=== PATIENT | female | born 1980 ===

== ENCOUNTER 2017-05-13 16:21 | Emergency (ER) | payer SELFPAY ==
[2017-05-13] MEDS ORDERED: Ketorolac 30 MG/ML SDV IVPUSH ONE ×2 (17:01→18:42)
[2017-05-13] MEDS ORDERED: Ondansetron 4 MG/2 ML SDV IVPUSH ONE (17:01)
--- NOTE | 2017-05-13 17:11 | EDM.PDOC ---
ED HPI GENERAL MEDICAL PROBLEM Frontal Headache Pain Score (Numeric/FACES): 6 - General Chief Complaint: Head Injury Stated Complaint: FALL/HIT HEAD Time Seen by Provider: 05/13/17 16:47 - History of Present Illness INITIAL COMMENTS - FREE TEXT/NARRATIVE: HISTORY AND PHYSICAL: History of present illness: This is a 36-year-old female presenting to the emergency department with a chief complaint of passing out after head trauma. Eyes for the patient she states that while at work today [employer]urt[employer] she hit her head on a metal after moving too quickly and not realizing which is what to do. She states that after she hit her head she did pass out and fall on the floor. She believes that she did pass out that she is unaware of how long she did pass out for. The incident was not witnessed by anybody else. She states that when she woke up, she was initially confused and began to feel nauseous immediately. Currently she continues to complain of nausea and also complains of headache and neck pain. She also complains of ringing in the ears. She denies any chest pain shortness of breath, she denies any numbness or tingling. Review of systems: As per history of present illness and below otherwise all systems reviewed and negative. Past medical history: As per history of present illness and as reviewed below otherwise noncontributory. Surgical history: As per history of present illness and as reviewed below otherwise noncontributory. Social history: No reported history of drug or alcohol abuse. Family history: As per history of present illness and as reviewed below otherwise noncontributory. Physical exam: HEENT: Atraumatic, normocephalic, pupils reactive, negative for conjunctival pallor or scleral icterus, mucous membranes moist, throat clear, neck supple, generalized tenderness to palpation. trachea midline. Lungs: Clear to auscultation, breath sounds equal bilaterally, chest nontender. Heart: S1S2, regular, negative for clicks, rubs, or JVD. Extremities: Atraumatic, negative for cords or calf pain. Neurovascular unremarkable. Neuro: Awake, alert, oriented. Cranial nerves II through XII unremarkable. Cerebellum unremarkable. Motor and sensory unremarkable throughout. Exam nonfocal. Diagnostics: Head CT without contrast Cervical spine CT without contrast Therapeutics: Zofran 4 mg IV push once Impression: Head injury - Concussion Plan: Discharge Home. Patient was advised to follow up with Dr. Choe within 3-5 days. Advised to return to seek further medical attention if she has any episodes of confusion, passing out, nausea or vomiting, or numbness/tingling. Patient agreed to the plan. Advised to take over the counter tylenol/ibuprofen for pain control as needed. (Man Choe) I have seen and discussed this patient with Dr. Choe and agree with the plan above. (Jing Ng) - Related Data Allergies Allergy/AdvReac Type Severity Reaction Status Date / Time codeine Allergy Rash Verified 05/13/17 16:43 Home Meds: Home Meds . [No Known Home Meds] 02/18/16 [History] Past Medical History Gastrointestinal History: Reports: Other (See Below) - Past Surgical History GI Surgical History: Reports: Cholecystectomy Musculoskeletal Surgical History: Reports: Other (See Below) Social & Family History - Family History Family Medical History: Noncontributory Oncologic: Reports: Lung, Uterine - Tobacco Use Smoking Status *Q: Former Smoker Years of Tobacco use: 15 Packs/Tins Daily: 1 Used Tobacco, but Quit: Yes Month Tobacco Last Used: 2012 - Caffeine Use Caffeine Use: Reports: Coffee, Energy Drinks, Soda, Tea - Recreational Drug Use Recreational Drug Use: No ED ROS GENERAL - Review of Systems Review Of Systems: See Below ED EXAM, HEAD INJURY - Physical Exam Exam: See Below Departure - Departure Time of Disposition: 18:34 Condition: Good - Departure Disposition: Home, Self-Care 01 Clinical Impression: Concussion injury of brain - Discharge Information Instructions: Head Injury, Adult, [id number] Referrals: PCP,None [Primary Care Provider] - Forms: ED Department Discharge Additional Instructions: The following information is given to patients seen in the emergency department who are being discharged to home. This information is to outline your options for follow-up care. We provide all patients seen in our emergency department with a follow-up referral. The need for follow-up, as well as the timing and circumstances, are variable depending upon the specifics of your emergency department visit. If you don't have a primary care physician on staff, we will provide you with a referral. We always advise you to contact your personal physician following an emergency department visit to inform them of the circumstance of the visit and for follow-up with them and/or the need for any referrals to a consulting specialist. The emergency department will also refer you to a specialist when appropriate. This referral assures that you have the opportunity for follow-up care with a specialist. All of these measure are taken in an effort to provide you with optimal care, which includes your follow-up. Under all circumstances we always encourage you to contact your private physician who remains a resource for coordinating your care. When calling for follow-up care, please make the office aware that this follow-up is from your recent emergency room visit. If for any reason you are refused follow-up, please contact the [facility] Emergency Department at and asked to speak to the emergency department charge nurse. - Problem List & Annotations (1) Concussion injury of brain SNOMED Code(s): 498123690 Code(s): S06.0X9A - CONCUSSION W LOSS OF CONSCIOUSNESS OF UNSP DURATION, INIT Status: Acute
[2017-05-13 18:48] VITALS: BP 112/76
--- NOTE | 2017-05-14 10:29 | CT ---
EXAM DATE: 05/13/17 PATIENT'S AGE: 36 Patient: [facility] Facility: [place], [place] Site . Site : 1980 Study: CT Spine Cervical [id number]/14/2017 5:46:15 PM Ordering Physician: Дмитрий Conway Final Report: INDICATION: Neck pain, head trauma TECHNIQUE: CT cervical spine without contrast. COMPARISON: None FINDINGS: Vertebral alignment: Alignment is normal. Vertebrae: There are no fractures or suspicious bony lesions. Discs and facet joints: Disc spaces and facets are within normal limits. Extraspinal findings: Prevertebral soft tissues, visualized airway, and visualized lungs are unremarkable. IMPRESSION: Unremarkable cervical spine CT. Please note that all CT scans at this facility use dose modulation, iterative reconstruction, and/or weight-based dosing when appropriate to reduce radiation dose to as low as reasonably achievable. Dictated by Sarah Moran MD @ May 13 2017 6:23PM (Electronic Signature) Report Signed by Proxy. [facility]
--- NOTE | 2017-05-14 10:30 | CT ---
EXAM DATE: 05/13/17 PATIENT'S AGE: 36 Patient: [facility] Facility: [place], [place] Site . Site : 1980 Study: CT Head [id number]/14/2017 5:46:34 PM Ordering Physician: Дмитрий Conway Final Report: INDICATION: Trauma. Pain. TECHNIQUE: CT head without contrast. COMPARISON: None available FINDINGS: The ventricles and sulci demonstrate normal configuration and size. There is no mass effect or midline shift. There is no loss of avila-white differentiation. There is no evidence of a gross acute intracranial hemorrhage. No acute calvarial fracture is seen. The visualized paranasal sinuses and mastoid air cells are clear. The visualized orbits are within normal limits. IMPRESSION: No evidence of a gross acute intracranial hemorrhage, mass effect or loss of avila-white differentiation. Dictated by Jefferson Swanson MD @ 05/13/2017 6:30:24 PM Dictated by: Jefferson Swanson MD @ 05/13/2017 18:30:28 (Electronic Signature) Report Signed by Proxy. [facility]
== END 2017-05-13 18:59 | disposition home or self-care (01) ==
LOC: MW.ED 16:21
DX: S06.0X0A Concussion without loss of consciousness, initial encounter (principal); Z88.5 Allergy status to narcotic agent; Z90.49 Acquired absence of other specified parts of digestive tract; Z87.891 Personal history of nicotine dependence; W22.8XXA Striking against or struck by other objects, initial encounter
CPT/HCPCS: 70450; 72125; 96374; 96375; 99284; J1885; J2405; 99283

== ENCOUNTER 2017-10-14 19:53 | Emergency (ER) | payer BC ==
--- NOTE | 2017-10-14 20:33 | EDM.PDOC ---
ED HPI GENERAL MEDICAL PROBLEM - General Chief Complaint: Respiratory Problem Stated Complaint: FLU SYMTPOMS Time Seen by Provider: 10/14/17 20:20 Source of Information: Reports: Patient History Limitations: Reports: No Limitations - History of Present Illness INITIAL COMMENTS - FREE TEXT/NARRATIVE: HISTORY AND PHYSICAL: History of present illness: Patient comes to the emergency room today complaining of cough, chest congestion and generalized malaise for the past 2 weeks. In that timeframe she' s also developed body aches and fevers off and on. She has not checked her temperature but has felt feverish alternating with chills. No nausea or vomiting. No abdominal pain. Bowel bladder are normal. Has had some mild ear discomfort clear runny nose but no sore throat. She is taking DayQuil for her symptoms which has provided no improvement or relief. Cough is nonproductive. No purulent nasal discharge. Review of systems: As per history of present illness and below otherwise all systems reviewed and negative. Past medical history: As per history of present illness and as reviewed below otherwise noncontributory. Surgical history: As per history of present illness and as reviewed below otherwise noncontributory. Social history: No reported history of drug or alcohol abuse. Family history: As per history of present illness and as reviewed below otherwise noncontributory. Physical exam: HEENT: Atraumatic, normocephalic. TMs are clear. Nares patent. Oral mucous membranes are pink and moist. No tonsillar swelling, erythema or exudate. Neck supple no lymphadenopathy. Lungs: Clear to auscultation, breath sounds equal bilaterally. Heart: S1S2, regular rate and rhythm. Abdomen: Soft, nondistended, nontender. Pelvis: Stable nontender. Genitourinary: Deferred. Rectal: Deferred. Extremities: Atraumatic, full range of motion. Neurovascular unremarkable. Neuro: Awake, alert, oriented. Motor and sensory unremarkable throughout. Exam nonfocal. Diagnostics: [Chest x-ray, influenza swab] Impression: [Viral syndrome] Plan: [Discussed with patient that her symptoms are viral in nature. Recommend she push fluids, get plenty of rest. Lvss-egs-zifhghv analgesics and anti- inflammatories as well as shyy-yml-gnnlier cough syrups are recommended. Strict return precautions are reviewed. She is in agreement with today's plan.] Definitive disposition and diagnosis as appropriate pending reevaluation and review of above. body pain Pain Score (Numeric/FACES): 5 - Related Data Allergies Allergy/AdvReac Type Severity Reaction Status Date / Time codeine Allergy Rash Verified 10/14/17 20:07 Home Meds: Home Meds . [No Known Home Meds] 02/18/16 [History] Past Medical History - Past Health History Medical/Surgical History: Denies Medical/Surgical History HEENT History: Reports: None Cardiovascular History: Reports: None Respiratory History: Reports: None Gastrointestinal History: Reports: None Genitourinary History: Reports: None CORN POPPER History: Reports: Musculoskeletal History: Reports: None Neurological History: Reports: None Psychiatric History: Reports: Anxiety, Depression Endocrine/Metabolic History: Reports: None Hematologic History: Reports: None Immunologic History: Reports: None Oncologic (Cancer) History: Reports: None Dermatologic History: Reports: None - Infectious Disease History Infectious Disease History: Reports: None - Past Surgical History Head Surgeries/Procedures: Reports: None GI Surgical History: Reports: Cholecystectomy Musculoskeletal Surgical History: Reports: Shoulder Surgery Social & Family History - Family History Family Medical History: Noncontributory Oncologic: Reports: Lung, Uterine - Tobacco Use Smoking Status *Q: Former Smoker Years of Tobacco use: 15 Packs/Tins Daily: 1 Used Tobacco, but Quit: No Month Tobacco Last Used: 2012 - Caffeine Use Caffeine Use: Reports: Coffee - Recreational Drug Use Recreational Drug Use: No ED ROS GENERAL - Review of Systems Review Of Systems: ROS reveals no pertinent complaints other than HPI. ED EXAM, GENERAL - Physical Exam Exam: See Below Course - Vital Signs Last Recorded V/S: Last Vital Signs Temp 98 F 10/14/17 20:08 Pulse 92 10/14/17 20:08 Resp 19 10/14/17 20:08 BP 128/87 10/14/17 20:08 Pulse Ox 98 10/14/17 20:08 - Orders/Labs/Meds Orders: Active Orders 24 hr Category Date Time Status Chest 2V [CR] Stat Exams 10/14/17 20:25 Taken Departure - Departure Time of Disposition: 21:50 Disposition: Home, Self-Care 01 Condition: Good Clinical Impression: Viral syndrome - Discharge Information Referrals: PCP,None [Primary Care Provider] - Forms: ED Department Discharge Additional Instructions: The following information is given to patients seen in the emergency department who are being discharged to home. This information is to outline your options for follow-up care. We provide all patients seen in our emergency department with a follow-up referral. The need for follow-up, as well as the timing and circumstances, are variable depending upon the specifics of your emergency department visit. If you don't have a primary care physician on staff, we will provide you with a referral. We always advise you to contact your personal physician following an emergency department visit to inform them of the circumstance of the visit and for follow-up with them and/or the need for any referrals to a consulting specialist. The emergency department will also refer you to a specialist when appropriate. This referral assures that you have the opportunity for follow-up care with a specialist. All of these measure are taken in an effort to provide you with optimal care, which includes your follow-up. Under all circumstances we always encourage you to contact your private physician who remains a resource for coordinating your care. When calling for follow-up care, please make the office aware that this follow-up is from your recent emergency room visit. If for any reason you are refused follow-up, please contact the [facility] emergency department at and asked to speak to the emergency department charge nurse. [facility] [address] [place] [id number] Follow-up with a local primary care provider or at the clinic listed above in 48 -72 hours. You've been diagnosed with a viral illness. Push fluids. Get plenty of rest. If DayQuil is helping, stop it and start Robitussin or Delsym. Mucinex may also be helpful with your cough. Return to ER as needed as discussed. - My Orders Last 24 Hours: My Active Orders 10/14/17 20:25 Chest 2V [CR] Stat - Assessment/Plan Last 24 Hours: My Active Orders 10/14/17 20:25 Chest 2V [CR] Stat
[2017-10-14 22:05] VITALS: BP 117/73
--- NOTE | 2017-10-15 16:02 | CR ---
EXAM DATE: 10/14/17 PATIENT'S AGE: 37 Patient: [facility] Facility: [place], [place] Site . Site : 1980 Study: XRay Chest [id number]/15/2018 9:18:35 PM Ordering Physician: Doctor Peter Final Report: INDICATION: Cough for 2 weeks. TECHNIQUE: Chest radiograph 2 views COMPARISON: 09/03/2010. FINDINGS: Cardiovascular and mediastinum: The heart silhouette is normal in size and morphology. The mediastinum is normal in appearance. Lungs and pleural spaces: Both lungs are unremarkable in appearance. No sign of pleural effusion seen. No pneumothorax is identified. Bones and soft tissues: No significant findings. IMPRESSION: 1. Negative chest. Dictated by Gerry Smith MD @ 10/14/2017 9:48:12 PM Dictated by: Gerry Smith MD @ 10/14/2017 21:48:15 (Electronic Signature) Report Signed by Proxy. [facility]
== END 2017-10-14 22:00 | disposition home or self-care (01) ==
LOC: MW.ED 19:53
DX: B34.9 Viral infection, unspecified (principal); F32.9 Major depressive disorder, single episode, unspecified; Z87.891 Personal history of nicotine dependence; Z88.5 Allergy status to narcotic agent
CPT/HCPCS: 71046; 71046-26; 87804; 99283